=== PATIENT | female | born 1995 ===

== ENCOUNTER 2021-12-30 15:04 | Inpatient (IN) | payer SELFPAY ==
[2021-12-30] MEDS ORDERED: LACTATED RINGERS 1,000 ML ONE (16:19)
[2021-12-30] MEDS ORDERED: miSOPROStol 200 MCG TAB PR PRN (16:32)
[2021-12-30] MEDS ORDERED: LIDOCAINE (2%) 20 MG/1 ML VIAL 20 ML MDV INFILTRATI ONE (16:32)
[2021-12-30] MEDS ORDERED: OXYTOCIN 10 UNIT/1 ML INJ IM PRN (16:32)
[2021-12-30] MEDS ORDERED: BUTORPHANOL 2 MG/1 ML INJ IV PRN (16:32)
[2021-12-30] MEDS ORDERED: METHYLERGONOVINE MALEATE 0.2 MG/ML VIAL IM PRN (16:32)
[2021-12-30] MEDS ORDERED: NalbUPHINE 10 MG/1 ML INJ IV PRN (16:32)
[2021-12-30] MEDS ORDERED: ACETAMINOPHEN 325 MG TAB PO PRN (16:32)
[2021-12-30] MEDS ORDERED: CARBOPROST TROMETHAMINE 250 MCG/1 ML INJ IM PRN (16:32)
[2021-12-30] MEDS ORDERED: fentaNYL 100 MCG/2 ML INJ IV PRN (16:32)
[2021-12-30] MEDS ORDERED: MINERAL OIL 30 ML ORAL LIQD PO PRN (16:32)
[2021-12-30] MEDS ORDERED: ePHEDrine SULFATE 50 MG/1 ML INJ IV PRN ×2 (16:32→21:25)
[2021-12-30] MEDS ORDERED: LOPERAMIDE 2 MG CAP PO PRN (16:32)
[2021-12-30] MEDS ORDERED: TERBUTALINE 1 MG/1 ML INJ SUB-Q PRN (16:32)
[2021-12-30] MEDS: LACTATED RINGERS 1,000 ML IV SCH (17:00)
[2021-12-30] MEDS ORDERED: OXYTOCIN DRIP 30 UNITS/500 ML BAG IV SCH ×2 (17:00)
[2021-12-30 17:29] LABS: Hematocrit 31.2 % (30.3-42.9); Hemoglobin 10.3 gm/dl (10.1-14.3); Mean Corpuscular HGB Conc 33 % (30-34); Mean Corpuscular Volume 83 fl (79-97); Platelet Count 276 K/mm3 (140-440); Red Blood Count 3.77 M/mm3 (3.65-5.03); Red Cell Distribution Width 15.7 % (13.2-15.2)
[2021-12-30 17:42] LABS: Alanine Aminotransferase 11 units/L (7-56); Uric Acid 4.3 mg/dL (3.5-7.6)
[2021-12-30] MEDS: miSOPROStol 25 MCG TAB VG PRN ×2 (17:45→22:44)
[2021-12-30 18:12] LABS: Bilirubin,Urine NEG (Negative); Blood,Urine NEG (Negative); Color,Urine Yellow (Yellow); Mucus,Urine FEW /HPF; Urobilinogen,Urine < 2.0 mg/dL (<2.0)
--- NOTE | 2021-12-30 18:51 | History and Physical Report ---
History of Present Illness Date of examination: 12/30/21 (183) Date of admission: 12/30/21 16:32 Chief complaint: elevated 24hr urine Past History Past Medical History: no pertinent history Past Surgical History: no surgical history Family/Genetic History: none Social history: no significant social history - Obstetrical History Expected Date of Delivery: 01/10/22 Actual Gestation: 38 Week(s) 3 Day(s) : 2 Para: 0 Hx # Term Pregnancies: 0 Number of Pregnancies: 0 Spontaneous Abortions: 1 Induced : 0 Number of Living Children: 0 Medications and Allergies Allergies Allergy/AdvReac Type Severity Reaction Status Date / Time No Known Allergies Allergy Unverified 12/30/21 15:43 Home Medications Medication Instructions Recorded Confirmed Last Taken Type No Known Home Medications [No 12/30/21 12/30/21 Unknown History Reported Home Medications] Active Meds: Active Medications Acetaminophen (Acetaminophen 325 Mg Tab) 650 mg PO Q4H PRN PRN Reason: Pain, Mild (1-3) Butorphanol Tartrate (Butorphanol 2 Mg/1 Ml Inj) 2 mg IV Q2H PRN PRN Reason: Pain , Severe (7-10) Carboprost Tromethamine (Carboprost Tromethamine 250 Mcg/1 Ml Inj) 250 mcg IM ONCE PRN PRN Reason: Uterine Bleeding Ephedrine Sulfate (Ephedrine Sulfate 50 Mg/1 Ml Inj) 10 mg IV Q2M PRN PRN Reason: Hypotension Fentanyl (Fentanyl 100 Mcg/2 Ml Inj) 100 mcg IV Q2H PRN PRN Reason: Pain,Severe (7-10) LABOR PAIN Oxytocin/Sodium Chloride (Pitocin/Ns 30 Unit/500ml) 30 units in 500 mls @ 2 mls/hr IV TITR MAXIMINO; Protocol Lactated Ringer's (Lactated Ringers) 1,000 mls @ 125 mls/hr IV DIRECT MAXIMINO Last Admin: 12/30/21 17:00 Dose: 125 mls/hr Oxytocin/Sodium Chloride (Pitocin/Ns 30 Unit/500ml) 30 units in 500 mls @ 40 mls/hr IV TITR MAXIMINO; Protocol Loperamide HCl (Loperamide 2 Mg Cap) 2 mg PO ONCE PRN PRN Reason: give with Hemabate Methylergonovine Maleate (Methylergonovine Maleate 0.2 Mg/Ml Vial) 0.2 mg IM ONCE PRN PRN Reason: Uterine Bleeding Mineral Oil (Mineral Oil 30 Ml Oral Liqd) 30 ml PO QHS PRN PRN Reason: Constipation Misoprostol (Misoprostol 200 Mcg Tab) 800 mcg TN ONCE PRN PRN Reason: Uterine Bleeding Misoprostol (Misoprostol 25 Mcg Tab) 25 mcg VG Q4H PRN PRN Reason: Dilation Last Admin: 12/30/21 17:45 Dose: 25 mcg Nalbuphine HCl (Nalbuphine 10 Mg/1 Ml Inj) 10 mg IV Q2H PRN PRN Reason: Pain, Moderate (4-6) Oxytocin (Oxytocin 10 Unit/1 Ml Inj) 10 unit IM ONCE PRN PRN Reason: Uterine Bleeding Terbutaline Sulfate (Terbutaline 1 Mg/1 Ml Inj) 0.25 mg SUB-Q ONCE PRN PRN Reason: Hyperstimulation/Hypertonicity Review of Systems Constitutional: weight gain Eyes: other (flashing lights) Cardiovascular: leg edema (3 weeks ago) - Vital Signs Vital signs: Vital Signs Pulse BP 77 137/88 12/30/21 15:32 12/30/21 15:32 Temp Pulse Resp BP Pulse Ox 98.7 F 77 152/96 99 12/30/21 15:43 12/30/21 18:43 12/30/21 18:33 12/30/21 18:43 - Physical Exam Breasts: Positive: deferred Cardiovascular: Regular rate Lungs: Positive: Clear to auscultation, Normal air movement Abdomen: Positive: normal appearance, other (gravid) Genitourinary (Female): Positive: normal external genitalia, normal perenium Vulva: both: normal Vagina: Positive: normal moisture Uterus: Positive: enlarged (gravid) Anus/Rectum: Positive: normal perianal skin Extremities: Positive: normal Deep Tendon Reflex Grade: Normal +2 - Obstetrical FHR: category 1 FHR comments: 150's Uterine Contraction Monitor Mode: External Cervical Dilatation: 3 Cervical Effacement Percentage: 80 station: -3 Uterine Contraction Frequency (min): irregular Uterine Contraction Pattern: Irregular Uterine Contraction Intensity: Mild Results Result Diagrams: 12/30/21 16:59 12/30/21 16:59 Abnormal lab results 12/30/21 12/30/21 Range/Units 16:59 16:59 MCH 27 L (28-32) pg RDW 15.7 H (13.2-15.2) % Creatinine 0.4 L (0.6-1.2) mg/dL Lactate Dehydrogenase 206 H (91-180) units/L Ultrasound: pending Assessment and Plan A: [employer] Head ( Jihan #[id number]) HD1, 38.3 wks gestation JULIUS 01/10 patient of [facility] 25 YO female presented for induction of labor for elevated 24hr urine protein GBS negative hx of headaches resolved with Tylenol, scant epigastric pain, and swelling for the past 3weeks excessive weight gain of 32# CAT I tracing Gestational protein urea with possible neuphrotic syndrome Labs: PIH panel urine wnl amylase/lipase and lipid panel ( pending) Testing: U/S EFW/TOMA ( pending) P: Admit, continuous TOCO/EFM/ BP monitoring cytotec 25mcg SL Q4hr x3 doses Pain management as desired
[2021-12-30 19:08] LABS: Chol/HDL Ratio 3.27 %
[2021-12-30] MEDS ORDERED: fentaNYL-BUPIV 2 MCG/ML-0.125% 200 MCG/100 ML BAG EPIDURAL SCH (21:25)
[2021-12-30] MEDS ORDERED: NALOXONE 0.4 MG/1 ML INJ IV PRN (21:25)
[2021-12-30] MEDS ORDERED: BUPIVACAINE/PF (0.25%) 2.5 MG/ML 10 ML VIAL INFILTRATI ONE (21:29)
--- NOTE | 2021-12-30 21:48 | Ultrasound Report ---
ULTRASOUND OBSTETRIC INDICATION / CLINICAL INFORMATION: elevated protein urea. EFW and TOMA - Clinical Gestational Age (GA) in weeks, days: 38, 3 TECHNIQUE: Transabdominal. COMPARISON: None available. FINDINGS: Single intrauterine . Biparietal Diameter = 9.8 cm = 40, 0 weeks, days Head Circumference = 32.4 cm = 36, 4 weeks, days Abdominal Circumference = 33.0 cm = 36, 6 weeks, days Femur Length = 7.0 cm = 35, 6 weeks, days Average Ultrasound Age (AUA) = 37, 2 weeks, days Heart Rate: 159 beats per minute. Estimated Weight in grams (if calculated): 3074 Estimated Weight Growth Percentile (if calculated): 28% Position: cephalic. Cervix: Not evaluated. Length in cm (if measured): Not measured Placenta: Not evaluated Amniotic Fluid Volume: decreased Amniotic Fluid Index (TOMA) in cm (if calculated): 5.1 cm. Maternal Adnexa: Not evaluated. IMPRESSION: 1. Single, living intrauterine with estimated sonographic age of 37, 2 weeks, days. 2. Low amniotic fluid index of 5.1 cm. Signer Name: Cheng Reese MD Signed: 12/30/2021 9:44 PM Workstation Name: [id number]
--- NOTE | 2021-12-30 21:58 | Anesthesia Consultation ---
Anesthesia Consult and Med Hx Date of service: 12/30/21 - Airway Anesthetic Teeth Evaluation: Good ROM Head & Neck: Adequate Mental/Hyoid Distance: Adequate Mallampati Class: Class II Intubation Access Assessment: Probably Good - Pulmonary Exam CTA: Yes - Cardiac Exam Cardiac Exam: RRR - Pre-Operative Health Status ASA Pre-Surgery Classification: ASA2 Proposed Anesthetic Plan: Epidural - Pulmonary Hx Smoking: No Hx Asthma: No Hx Respiratory Symptoms: No SOB: No COPD: No Home Oxygen Therapy: No Hx Pneumonia: No Hx Sleep Apnea: No - Cardiovascular System Hx Hypertension: No Hx Coronary Artery Disease: No Hx Heart Attack/AMI: No Hx Angina: No Hx Percutaneous Transluminal Coronary Angioplasty (PTCA): No Hx Cardia Arrhythmia: No Hx Pacemaker: No Hx Internal Defibrillator: No Hx Valvular Heart Disease: No Hx Heart Murmur: No Hx Peripheral Vascular Disease: No - Central Nervous System Hx Neuromuscular Disorder: No Hx Seizures: No CVA: No Hx Back Pain: No Hx Psychiatric Problems: No - Gastrointestinal Hx Ulcer: No Hx Gastroesophageal Reflux Disease: No - Endocrine Hx Renal Disease: No Hx End Stage Renal Disease: No Hx Cirrhosis: No Hx Liver Disease: No Hx Insulin Dependent Diabetes: No Hx Non-Insulin Dependent Diabetes: No Hx Thyroid Disease: No Hx Hypothyroidism: No Hx Hyperthyroidism: No - Hematic Hx Anemia: No Hx Sickle Cell Disease: No - Other Systems Hx Alcohol Use: No Hx Substance Use: No Hx Cancer: No Hx Obesity: No
--- NOTE | 2021-12-30 21:58 | Anesthesia Day of Surgery ---
Anesthesia Day of Surgery - Day of Surgery Patient Examined: Yes Patient H&P Reviewed: Yes Patient is NPO: Yes Beta Blockers: No Cardiac Clearance: No Pulmonary Clearance: No Bassam's Test: N/A
--- NOTE | 2021-12-30 21:58 | Progress Note ---
Labor Epidural - Labor Epidural Start Time: 21:31 Stop Time: 21:36 Performed by:: BART LANGLEY Procedure: Epidural Requested for Labor Pain. H&P and PT Chart reviewed and consent obtained. Time out performed and the procedure was explained, all questions answered. Patient was placed in a sitting position with monitors applied. The PTs back was prepped and draped in usual sterile fashion. The Skin was localized with 3 mL of 1% lidocaine at L3-L4. A 17-gauge Touhy epidural needle was advanced to SABINE with saline at 7 cm and no blood/CSF was noted via epidural needle. Epidural catheter was advanced to 12 cm. There was negative aspiration for blood and CSF in the catheter and negative response to a test dose of 3 ml 1.5% lidocaine w/ Epi and a sterile dressing was applied Patient tolerated the procedure well and there were no immediate complications noted.
--- NOTE | 2021-12-30 23:46 | Event Note ---
Date: 12/30/21 CC: HD #1, Induction of labor, preeclampsia, gestational proteinuria vs. nephrotic syndrome HPI: The patient is a 26-year-old at 38-3/7 gestation who is admitted to labor and delivery for induction of labor. She received care at [facility]. She had an elevated 24 urine protein of 1100 mg. According to the record and the patient's history, she had no pregestational hypertension nor did she have any elevated blood pressures greater than 140/90 during her visits. The 24-hour urine protein collection was performed secondary to sudden weight gain and headaches. As such, this patient had (at a minimum) gestational proteinuria; however, nephrotic syndrome is also a possibility. During this patient's initial evaluation in labor and delivery, blood pressures were intermittently greater than 140/90. There was no headache, diplopia, right upper quadrant pain, or scotomata. O: BP= 151/88 EFM= category 1 SVE= 5 cm dilated LABS: Preeclampsia labs reviewed RAD: OB US Limited= TOMA= 5.1 cm IMP: 1.) 38 weeks 2.) Pre-eclampsia 3.) Induction of labor 4.) Gestational proteinuria vs. nephrotic syndrome PLAN: 1.) care is up-to-date at [facility]. The patient is GBS negative. 2.) Continue Cytotec for cervical ripening.
[2021-12-31] MEDS ORDERED: LIDOCAINE PF 100 MG/5 ML (CARDIAC SYRINGE) IV ONE (00:26)
[2021-12-31] MEDS ORDERED: LIDOCAINE MPF (2%) 20 MG/1 ML VIAL 5 ML ONE (00:28)
[2021-12-31] MEDS ORDERED: MAGNESIUM SULFATE 4 GM/100 ML BAG IV ONE (03:09)
[2021-12-31] MEDS: LACTATED RINGERS 1,000 ML IV SCH ×2 (03:29→16:03)
[2021-12-31] MEDS ORDERED: MAGNESIUM SULFATE 40GM/1000ML 40 GM/1,000 ML BAG IV SCH ×2 (04:00→06:00)
[2021-12-31] MEDS ORDERED: MAGNESIUM SULFATE 2 GM/50 ML BAG IV ONE (04:44)
--- NOTE | 2021-12-31 05:26 | Procedure Note ---
OB Delivery Note - Delivery Date of Delivery: 12/31/21 Surgeon: YONAS SIDHU Estimated blood loss: 500cc - Vaginal Delivery presentation: vertex Delivery position: OA Intrapartum events: preeclampsia (Preeclampsia with severe features), other(please specify) (Gestational proteinuria vs. nephrotic syndrome) Delivery induction: misoprostol Delivery augmentation: pitocin Delivery monitor: external FHT, external uterine Route of delivery: Delivery placenta: spontaneous Delivery cord: 3 umbilical vessels Delivery laceration: none Delivery repair: vicryl Anesthesia: epidural Delivery comments: After admission to labor and delivery, this patient developed blood pressures >140/90. There were no headaches, diplopia, right upper quadrant pain, or scotomata. When the patient achieved complete cervical dilation, she began to have blood pressures >160/110 that were consistent. Thereafter, intravenous labetalol 20 mg /40 mg were administered to keep blood pressure <160/110. Furthermore, intravenous magnesium sulfate was administered for seizure prophylaxis. The patient delivered a liveborn female infant without difficulty. There was a right vaginal sidewall laceration that was repaired with 2-0 Vicryl and 3-0 Vicryl with excellent hemostasis. Magnesium sulfate will be continued 24 hours . - A at 1 minute: 8 at 5 minutes: 9 Infant Gender: Female
[2021-12-31] MEDS ORDERED: WITCH HAZEL/ GLYCERIN PAD TP PRN (05:29)
[2021-12-31] MEDS ORDERED: HYDROcodone/ACETAMINOPHEN 5-325 MG TAB PO PRN (05:29)
[2021-12-31] MEDS ORDERED: ACETAMINOPHEN 325 MG TAB PO PRN (05:29)
[2021-12-31] MEDS ORDERED: BENZOCAINE/MENTHOL 20/0.5% TOP SPRAY 56 GM TP PRN (05:29)
[2021-12-31] MEDS ORDERED: LANOLIN/ZINC/DIMETHICONE (LANSINOH) 7 GM TP PRN (05:29)
[2021-12-31] MEDS ORDERED: MAGNESIUM HYDROXIDE (MOM) ORAL LIQD UDC PO PRN (05:29)
[2021-12-31] MEDS ORDERED: OXYTOCIN DRIP 30,000 MILLIUNITS/500 ML BAG IV ONE (05:56)
[2021-12-31] MEDS ORDERED: LOPERAMIDE 2 MG CAP PO PRN (08:00)
[2021-12-31] MEDS ORDERED: CARBOPROST TROMETHAMINE 250 MCG/1 ML INJ IM SCH (08:00)
[2021-12-31] MEDS: DOCUSATE SODIUM 100 MG CAP PO SCH (09:33)
[2021-12-31] MEDS: PRENATAL VIT27-FE FUMARATE-FOLIC ACID VIT TAB PO SCH (10:31)
[2021-12-31] MEDS ORDERED: PROMETHAZINE 25 MG TAB PO PRN (11:31)
--- NOTE | 2021-12-31 16:34 | Post Anesthesia Evaluation ---
- Post Anesthesia Evaluation Patient Participated: Yes Airway Patent: Yes Stable Respiratory Function: Yes Nausea/Vomiting: No Temp > 96.8F: Yes Pain Manageable: Yes Adequeate Hydration: Yes Anesthesia Complications: No Block Receding Appropriately: Yes Patient on Ventilator: No
[2021-12-31] MEDS: IBUPROFEN 600 MG TAB PO PRN (18:25)
[2022-01-01] MEDS: LACTATED RINGERS 1,000 ML IV SCH (04:34)
[2022-01-01 08:40] LABS: Hematocrit 22.8 % (30.3-42.9); Hemoglobin 7.6 gm/dl (10.1-14.3); Mean Corpuscular HGB Conc 34 % (30-34); Mean Corpuscular Volume 82 fl (79-97); Platelet Count 236 K/mm3 (140-440); Red Blood Count 2.77 M/mm3 (3.65-5.03); Red Cell Distribution Width 15.7 % (13.2-15.2)
[2022-01-01] MEDS: DOCUSATE SODIUM 100 MG CAP PO SCH (11:57)
[2022-01-01] MEDS: PRENATAL VIT27-FE FUMARATE-FOLIC ACID VIT TAB PO SCH (11:57)
[2022-01-01] MEDS: IBUPROFEN 600 MG TAB PO PRN (11:58)
--- NOTE | 2022-01-01 12:15 | Progress Note ---
Assessment and Plan A: PPD # 1 - stable Plan discharge home today Discharge instructions given Subjective - Subjective Date of service: 01/01/22 Principal diagnosis: PPD #1 - stable Patient reports: appetite normal [place]: doing well Objective - Vital Signs Latest vital signs: Vital Signs Temp Pulse Resp BP BP Pulse Ox Pulse Ox 01/01/22 08:34 98.4 F 78 18 117/66 99 01/01/22 08:22 98 01/01/22 05:40 98.3 F 75 18 111/68 97 01/01/22 05:13 76 99 01/01/22 05:08 77 98 01/01/22 05:03 74 98 01/01/22 04:58 80 99 01/01/22 04:53 75 99 01/01/22 04:48 74 99 01/01/22 04:43 73 98 01/01/22 04:42 98.4 F 16 100 01/01/22 04:38 75 98 01/01/22 04:33 73 98 01/01/22 04:27 75 99 01/01/22 04:24 90 01/01/22 04:22 77 97 01/01/22 04:17 80 97 01/01/22 04:13 76 93/50 93 01/01/22 04:12 80 97 01/01/22 04:07 80 97 01/01/22 04:02 85 97 01/01/22 03:57 82 99 01/01/22 03:52 78 98 01/01/22 03:47 77 98 01/01/22 03:43 89 123/66 90 01/01/22 03:42 85 97 01/01/22 03:37 80 98 01/01/22 03:32 80 98 01/01/22 03:27 81 98 01/01/22 03:22 80 98 01/01/22 03:17 89 96 01/01/22 03:12 87 97 01/01/22 03:11 86 91 01/01/22 03:07 82 98 01/01/22 03:02 86 100 01/01/22 02:57 79 97 01/01/22 02:52 77 97 01/01/22 02:47 82 97 01/01/22 02:43 81 104/55 92 01/01/22 02:42 79 97 01/01/22 02:37 80 97 01/01/22 02:32 79 97 01/01/22 02:27 80 97 01/01/22 02:22 90 98 01/01/22 02:17 83 98 01/01/22 02:13 78 104/59 93 01/01/22 02:12 81 98 01/01/22 02:07 78 98 01/01/22 02:02 75 98 01/01/22 02:00 16 01/01/22 01:57 79 98 01/01/22 01:52 80 97 01/01/22 01:47 80 96 01/01/22 01:43 78 106/56 94 01/01/22 01:42 88 97 01/01/22 01:37 74 98 01/01/22 01:32 87 98 01/01/22 01:27 76 98 01/01/22 01:22 78 98 01/01/22 01:17 79 98 01/01/22 01:13 78 109/59 92 01/01/22 01:12 79 98 01/01/22 01:07 84 99 01/01/22 01:02 78 97 01/01/22 00:57 85 97 01/01/22 00:52 85 98 01/01/22 00:47 86 96 01/01/22 00:43 95 H 118/70 91 01/01/22 00:42 87 96 01/01/22 00:37 92 H 96 01/01/22 00:32 90 98 01/01/22 00:27 84 97 01/01/22 00:22 88 97 01/01/22 00:17 81 96 01/01/22 00:13 90 108/59 90 01/01/22 00:12 88 97 01/01/22 00:07 95 H 95 01/01/22 00:03 98 H 94 01/01/22 00:02 92 H 95 01/01/22 00:00 18 12/31/21 23:57 90 96 12/31/21 23:52 91 H 97 12/31/21 23:47 92 H 95 12/31/21 23:43 83 115/53 90 12/31/21 23:42 85 96 12/31/21 23:37 87 96 12/31/21 23:32 87 97 12/31/21 23:27 85 96 07/13/22 23:22 86 96 12/31/21 23:17 84 96 12/31/21 23:13 86 103/52 93 12/31/21 23:12 85 97 12/31/21 23:07 86 97 12/31/21 23:02 86 97 12/31/21 22:57 87 97 12/31/21 22:52 87 97 12/31/21 22:47 88 97 12/31/21 22:43 84 98/51 92 12/31/21 22:42 86 97 12/31/21 22:37 86 97 12/31/21 22:32 87 97 12/31/21 22:27 88 97 12/31/21 22:22 94 H 97 12/31/21 22:17 85 97 12/31/21 22:13 84 116/55 93 12/31/21 22:12 81 96 12/31/21 22:07 86 97 12/31/21 22:02 86 97 12/31/21 22:00 98.6 F 17 12/31/21 21:57 81 97 12/31/21 21:52 83 97 12/31/21 21:47 85 98 12/31/21 21:43 83 99/58 12/31/21 21:42 82 98 12/31/21 21:37 80 98 12/31/21 21:32 88 99 12/31/21 21:27 86 98 12/31/21 21:22 83 97 12/31/21 21:17 88 98 12/31/21 21:13 88 98/54 92 12/31/21 21:12 88 98 12/31/21 21:07 84 99 12/31/21 21:02 91 H 98 12/31/21 21:00 98 12/31/21 20:57 93 H 98 12/31/21 20:52 80 98 12/31/21 20:47 85 97 12/31/21 20:43 78 106/55 12/31/21 20:42 86 98 12/31/21 20:37 89 98 12/31/21 20:32 77 98 12/31/21 20:27 83 97 12/31/21 20:22 80 98 12/31/21 20:17 80 99 12/31/21 20:13 85 114/67 92 12/31/21 20:12 84 97 12/31/21 20:07 83 98 12/31/21 20:02 89 98 12/31/21 19:57 86 98 12/31/21 19:52 87 97 12/31/21 19:47 90 97 12/31/21 19:46 98.6 F 84 18 112/72 97 12/31/21 19:43 85 112/72 93 12/31/21 19:42 88 97 97 12/31/21 19:40 18 97 12/31/21 19:37 90 97 12/31/21 19:32 88 99 12/31/21 19:27 96 H 98 12/31/21 19:22 91 H 97 12/31/21 19:17 98 H 98 12/31/21 19:13 97 H 102/58 12/31/21 19:12 90 97 12/31/21 19:07 85 99 12/31/21 19:02 85 99 12/31/21 18:57 91 H 97 12/31/21 18:52 85 97 12/31/21 18:47 86 98 12/31/21 18:43 82 107/59 12/31/21 18:42 88 97 12/31/21 18:37 91 H 98 12/31/21 18:32 104 H 99 12/31/21 18:29 20 99 12/31/21 18:27 82 99 12/31/21 18:24 92 H 94 12/31/21 18:22 87 98 12/31/21 18:18 88 94 12/31/21 18:17 84 97 12/31/21 18:13 82 116/74 12/31/21 18:12 84 96 12/31/21 18:08 91 H 93 12/31/21 18:07 89 96 12/31/21 18:03 85 93 12/31/21 18:02 89 93 12/31/21 17:58 91 H 93 12/31/21 17:57 83 98 12/31/21 17:52 91 H 96 12/31/21 17:47 91 H 98 12/31/21 17:43 90 122/74 12/31/21 17:42 88 98 12/31/21 17:37 86 98 12/31/21 17:32 82 99 12/31/21 17:30 18 97 12/31/21 17:27 89 99 12/31/21 17:22 86 100 12/31/21 17:17 82 98 12/31/21 17:13 81 115/72 12/31/21 17:12 79 98 12/31/21 17:07 84 98 12/31/21 17:02 77 99 12/31/21 16:57 78 99 12/31/21 16:52 78 98 12/31/21 16:47 79 98 12/31/21 16:43 79 116/78 12/31/21 16:42 81 97 12/31/21 16:37 78 98 12/31/21 16:32 77 98 12/31/21 16:30 97.8 F 20 97 12/31/21 16:27 90 98 12/31/21 16:22 89 99 12/31/21 16:17 83 96 12/31/21 16:13 85 112/67 92 12/31/21 16:12 84 96 12/31/21 16:07 85 96 12/31/21 16:02 86 96 12/31/21 15:57 85 96 12/31/21 15:52 84 96 12/31/21 15:47 84 96 12/31/21 15:43 84 107/66 92 12/31/21 15:42 84 96 12/31/21 15:37 81 97 12/31/21 15:32 81 18 97 12/31/21 15:27 83 96 12/31/21 15:22 79 97 12/31/21 15:17 85 96 12/31/21 15:13 84 117/66 93 12/31/21 15:12 80 97 12/31/21 15:07 84 96 12/31/21 15:02 82 96 12/31/21 14:57 82 96 12/31/21 14:52 80 96 12/31/21 14:47 81 97 12/31/21 14:42 79 97 12/31/21 14:37 79 98 12/31/21 14:35 18 97 12/31/21 14:32 93 H 96 12/31/21 14:27 89 95 12/31/21 14:22 83 98 12/31/21 14:19 83 94 12/31/21 14:17 86 98 12/31/21 14:13 93 H 102/58 12/31/21 14:12 92 H 98 12/31/21 14:07 89 98 12/31/21 14:02 86 97 12/31/21 13:57 83 96 12/31/21 13:52 92 H 97 12/31/21 13:47 88 97 12/31/21 13:43 91 H 114/71 12/31/21 13:42 92 H 95 12/31/21 13:40 88 92 12/31/21 13:37 86 97 12/31/21 13:35 18 97 12/31/21 13:32 90 97 12/31/21 13:27 87 98 12/31/21 13:22 90 98 12/31/21 13:20 38 L 92 12/31/21 13:17 86 97 12/31/21 13:13 86 106/67 93 12/31/21 13:12 89 97 12/31/21 13:07 94 H 97 12/31/21 13:02 88 97 12/31/21 12:57 92 H 97 12/31/21 12:52 88 96 12/31/21 12:47 88 97 12/31/21 12:43 86 109/67 12/31/21 12:42 90 98 12/31/21 12:37 96 H 97 12/31/21 12:32 86 97 12/31/21 12:27 85 97 12/31/21 12:25 97.9 F 18 98 12/31/21 12:22 91 H 97 12/31/21 12:17 88 97 Intake and Output 12/31/21 01/01/22 01/01/22 22:59 06:59 14:59 Intake Total 1000 120 Output Total 2400 875 Balance -2400 125 120 Intake: IV 1000 Lactated Ringers 1,000 ml 1000 @ 125 mls/hr IV DIRECT [facility] Rx#:[id number] Oral 120 Output: Urine 2400 875 Indwelling Catheter 2400 875 Other: Total, Intake Amount 120 Total, Output Amount 600 400 # Voids Indwelling Catheter 1 - Exam Breasts: Present: deferred Cardiovascular: Present: Regular rate Lungs: Present: Clear to auscultation Abdomen: Present: soft Vulva: both: normal Uterus: Present: fundal height below umbilicus Extremities: Present: normal Deep Tendon Reflex Grade: Normal +2 - Labs Labs: Abnormal lab results 12/31/21 12/31/21 01/01/22 Range/Units 12:33 19:04 00:16 WBC (4.5-11.0) K/mm3 RBC (3.65-5.03) M/mm3 Hgb (10.1-14.3) gm/dl Hct (30.3-42.9) % RDW (13.2-15.2) % Magnesium 4.30 H 4.90 H 5.20 H (1.7-2.3) mg/dL 01/01/22 01/01/22 Range/Units 08:20 08:20 WBC 14.8 H (4.5-11.0) K/mm3 RBC 2.77 L (3.65-5.03) M/mm3 Hgb 7.6 L (10.1-14.3) gm/dl Hct 22.8 L D (30.3-42.9) % RDW 15.7 H (13.2-15.2) % Magnesium 3.50 H (1.7-2.3) mg/dL
--- NOTE | 2022-01-01 12:16 | Discharge Summary ---
Providers - Providers Date of Admission: 12/30/21 16:32 Date of discharge: 01/01/22 Attending physician: PRECIOUS LARA Primary care physician: PRECIOUS LARA Hospitalization Reason for admission: induction of labor Delivery: Laceration: 2nd degree Other procedures: none complications: none Discharge diagnosis: IUP at term delivered [place] baby: female Condition at discharge: Good Disposition: 01 HOME / SELF CARE / HOMELESS Plan - Provider Discharge Summary Activity: routine, no sex for 6 weeks, no strenuous exercise Diet: routine Instructions: routine Additional instructions: [] Smoking cessation referral if applicable(refer to patient education folder for contact #) [] Refer to [facility] Booklet Call your doctor immediately for: * Fever > 100.5 * Heavy vaginal bleeding ( >1 pad per hour) * Severe persistent headache * Shortness of breath * Reddened, hot, painful area to leg or breast * Drainage or odor from incision. * Keep incision clean and dry at all times and follow doctor's instructions regarding bathing/showering - Follow up plan Follow up: PRECIOUS LARA MD [Primary Care Provider] - 6 Weeks Forms: [facility] Discharge Summary
[2022-01-01 14:09] VITALS: BP 139/71
== END 2022-01-01 14:49 | disposition home or self-care (01) | DRG 807 ==
LOC: NM 15:04 → LD 15:05 → NM 17:05 → OB 01-01 07:14
PROVIDERS: ADMIT Obstetrics & Gynecology; ATTEND Obstetrics & Gynecology
PROC: 10E0XZZ Delivery of Products of Conception, External Approach (ICD-10-PCS; principal; 2021-12-31)
PROC: 0KQM0ZZ Repair Perineum Muscle, Open Approach (ICD-10-PCS; 2021-12-31)
PROC: 3E0R3BZ Introduction of Anesthetic Agent into Spinal Canal, Percutaneous Approach (ICD-10-PCS; 2021-12-31)
PROC: 00HU33Z Insertion of Infusion Device into Spinal Canal, Percutaneous Approach (ICD-10-PCS; 2021-12-31)
DX: O14.14 Severe pre-eclampsia complicating childbirth (principal); Z37.0 Single live birth; Z3A.38 38 weeks gestation of pregnancy; Z20.822 Contact with and (suspected) exposure to COVID-19; O70.1 Second degree perineal laceration during delivery
CPT/HCPCS: 36415; 76816; 80061; 81001; 82150; 82565; 83615; 83690; 83735; 84450; 84460; 84550; 85014; 85018; 85027; 86850; 86900; 86901; G0378; J3490; J3475; J7120; Q0169; U0003